=== PATIENT | female | born 1985 | race Caucasian/White ===

== ENCOUNTER 2021-03-17 10:19 | Outpatient (CLI) | payer OTHER | END 2021-03-17 12:28 | disposition home or self-care (01) | LOC: LAB 10:19 → EDBD 10:19 → LAB 12:28 | DX: M54.2 Cervicalgia (principal); R73.03 Prediabetes; Z00.01 Encounter for general adult medical examination with abnormal findings; Z11.3 Encounter for screening for infections with a predominantly sexual mode of transmission; Z12.11 Encounter for screening for malignant neoplasm of colon; Z13.228 Encounter for screening for other metabolic disorders; Z11.4 Encounter for screening for human immunodeficiency virus [HIV]; Z13.220 Encounter for screening for lipoid disorders; Z13.0 Encounter for screening for diseases of the blood and blood-forming organs and certain disorders involving the immune mechanism; Z13.1 Encounter for screening for diabetes mellitus; I10 Essential (primary) hypertension; Z11.59 Encounter for screening for other viral diseases; Z12.31 Encounter for screening mammogram for malignant neoplasm of breast; N60.89 Other benign mammary dysplasias of unspecified breast; N39.0 Urinary tract infection, site not specified; E55.9 Vitamin D deficiency, unspecified ==

== ENCOUNTER 2021-04-01 07:16 | Outpatient (CLI) | payer OTHER | END 2021-04-01 07:43 | disposition home or self-care (01) | LOC: MAMO-SONO 07:16 | PROVIDERS: ATTEND General Practice | DX: M54.2 Cervicalgia (principal); N64.4 Mastodynia; E03.8 Other specified hypothyroidism; N60.09 Solitary cyst of unspecified breast; Z12.31 Encounter for screening mammogram for malignant neoplasm of breast; Z11.59 Encounter for screening for other viral diseases; Z13.1 Encounter for screening for diabetes mellitus; Z13.0 Encounter for screening for diseases of the blood and blood-forming organs and certain disorders involving the immune mechanism; Z13.220 Encounter for screening for lipoid disorders; Z11.4 Encounter for screening for human immunodeficiency virus [HIV]; Z13.228 Encounter for screening for other metabolic disorders; Z12.11 Encounter for screening for malignant neoplasm of colon; Z11.3 Encounter for screening for infections with a predominantly sexual mode of transmission; Z00.01 Encounter for general adult medical examination with abnormal findings ==

== ENCOUNTER 2021-04-22 09:56 | Outpatient (CLI) | payer OTHER | END 2021-04-22 09:59 | disposition home or self-care (01) | LOC: LAB 09:56 | PROVIDERS: ATTEND General Practice | DX: E03.8 Other specified hypothyroidism (principal); L04.0 Acute lymphadenitis of face, head and neck; D50.8 Other iron deficiency anemias; E04.2 Nontoxic multinodular goiter ==